=== PATIENT | male | born 1995 | race Caucasian/White ===

== ENCOUNTER 2022-10-21 18:21 | Observation (INO) ==
--- NOTE | 2022-10-21 18:26 | ED Triage Note ---
Date of Service October 21, 2022 History of Present Illness This patient was briefly evaluated while in triage. An abbreviated physical exam was performed. This patient is a 27-year-old Male who presents to the ED for evaluation of left kidney stone. Seen here 2 days ago. Reports increasing pain. Denies urinary symptoms, fevers. Has urology appt scheduled for Friday. Physical Exam Constitutional: alert and oriented x3. no acute distress. ill appearing HEENT: normocephalic, atraumatic. normal conjunctiva.PERRLA. EOM's grossly intact. Respiratory: lungs are clear to auscultation without wheezes, rhonchi, or rales bilaterally. equal chest rise. normal respiratory effort, no accessory muscle use. Cardiovascular: normal heart sounds without murmur. regular rate and rhythm. GI: abdomen is soft, lower abdominal tenderness. No palpable masses. No rebound tenderness or guarding. L CVA tenderness MSK: moves all 4 extremities spontaneously Psych:appropriate mood and affect. Initial orders for labs and / or imaging were placed and patient was placed in the waiting area until a bed is available. Please see further documentation for the full ED course.
[2022-10-21] MEDS ORDERED: KETOROLAC TROMETHAMINE 15 MG/ML VIAL IV STA (18:35)
[2022-10-21] MEDS ORDERED: SODIUM CHLORIDE 0.9% 1000ML 1,000 ML IV ONE (18:35)
[2022-10-21] MEDS ORDERED: ONDANSETRON INJ 2 MG/ML 2 ML VIAL IV STA (18:35)
[2022-10-21 18:59] LABS: iSTAT Creatinine 0.8 mg/dl (0.6-1.3); iSTAT Hemoglobin 14.6 g/dl (14.0-18.0); iSTAT Ionized Calcium 1.24 mmol/l (1.12-1.32); iSTAT Potassium 3.6 mmol/L (3.3-5.0)
--- NOTE | 2022-10-21 19:12 | Emergency Department Note ---
History of Present Illness General Chief Complaint: Kidney Stone Stated Complaint: ABD PAIN FROM KIDNEY STONE Time Seen by Provider: 10/21/22 18:30 History of Present Illness Provider Complaint: abdominal pain Onset (ago): 1 day(s) Pain Consistency: constant Location: diffuse Severity: moderate Maximum Pain Intensity: 5 Current Pain Intensity: 5 Quality: + stabbing and + sharp Relieved By: + nothing Exacerbated By: + nothing Context: no foreign travel, no possible food poisoning, no sick contacts, no recent antibiotic use, no recent surgery/procedure or no recent injury Associated Symptoms: + nausea and + vomiting; no diarrhea, no fever, no chills, no constipation, no dysuria, no hematemesis, no melena, no hematuria, no headach e, no neck pain, no chest pain and no breathing difficulty Home Medications Medication Instructions Recorded Confirmed Type oxycodone 5 mg tablet 5 mg PO Q6H PRN pain #10 tabs 10/19/22 10/21/22 Rx tamsulosin 0.4 mg capsule (Flomax) 0.4 mg PO DAILY #10 caps 10/19/22 10/21/22 Rx Allergies Allergy/AdvReac Type Severity Reaction Status Date / Time No Known Allergies Allergy Verified 10/21/22 19:42 Past Med/Surg History Medical History Crohn disease Surgical History No pertinent past surgical history Social History Smoking Status: Never smoker Preferred Language: Slovak Feels Safe at Home: Yes Physical Exam Vital Signs: Vital Signs - 24 hr 10/21/22 18:24 10/21/22 18:36 10/21/22 20:32 Temperature 36.8 C Temperature Source Temporal Artery Sc an Pulse Rate 165 H 106 H Pulse Rate [Left F minnie] 74 Pulse Rhythm [Left Finger] Regular Pulse Strength [Le ft Finger] Normal Respiratory Rate 18 16 Respiratory Effort / Characteristics Non-Labored Sponta neous Non-Labored Sponta neous Respiratory Depth Normal Normal Blood Pressure 124/65 Blood Pressure [Ri ght Arm] 116/60 Blood Pressure Shaista n 84 Blood Pressure Shaista n [Right Arm] 78 Pulse Oximetry 98 98 Oxygen Delivery Me thod Room Air Room Air Sepsis Recent Feve r Within 48 Hours No Sepsis New/Unexpla ined Change in Men jack Status No Sepsis Action Take n by Nursing No Action Required 10/21/22 22:40 Temperature Temperature Source Pulse Rate Pulse Rate [Left F minnie] 82 Pulse Rhythm [Left Finger] Regular Pulse Strength [Le ft Finger] Normal Respiratory Rate 16 Respiratory Effort / Characteristics Non-Labored Sponta neous Respiratory Depth Normal Blood Pressure Blood Pressure [Ri ght Arm] 133/67 Blood Pressure Shaista n Blood Pressure Shaista n [Right Arm] 89 Pulse Oximetry 98 Oxygen Delivery Me thod Room Air Sepsis Recent Feve r Within 48 Hours Sepsis New/Unexpla ined Change in Men jack Status Sepsis Action Take n by Nursing Physical Exam: Physical Exam GENERAL: She is oriented to person, place, and time. She appears well-developed and well-nourished. She does not appear distressed. HENT: Exam performed. -Head: Normocephalic and atraumatic. -Right Ear: External ear normal. No mastoid erythema -Left Ear: External ear normal. No mastoid erythema -Mouth/Throat: The oropharynx is clear and moist. No trismus in the jaw. No dental abscesses or uvula swelling. No oropharyngeal exudate or tonsillar abscesses. EYES: Conjunctivae and EOM are normal.Right eye exhibits no discharge. Left eye exhibits no discharge. No scleral icterus. NECK: Normal range of motion. Neck supple. No JVD present. No tracheal deviation and normal range of motion present. CV: Normal rate, regular rhythm, normal heart sounds and intact distal pulses. There is no peripheral edema. Palpable radial pulses bue. PULM/CHEST: Effort normal and breath sounds normal. No respiratory distress. No stridor. She has no wheezes. She has no rales. -Chest Wall: She exhibits no tenderness. ABD: The abdomen is soft. Bowel sounds are normal. She has no distension. No mass is present. There is diffuse tenderness to palpation. There is no rebound, no guarding, no Chawla's sign and no tenderness at McBurney's point. Rovsig negative MUSC/SKEL: Normal range of motion. There is no peripheral edema, tenderness or deformity. NEURO: Motor and sensation grossly intact. SKIN: Skin is warm and dry. She is not diaphoretic. PSYCH: She has a normal mood and affect. Behavior is normal. Judgment and thought content normal. Course Course 1829: The patient was evaluated in room C1. A complete history and physical exam was performed Administered Medications Discontinued Medications Sodium Chloride (Nss 1000ml) 1,000 mls @ 999 mls/hr IV .Q1H1M ONE Stop: 10/21/22 19:35 Last Infusion: 10/21/22 19:49 Dose: 0 mls/hr Documented By: Admin: 10/21/22 18:42 Dose: 999 mls/hr Documented By: JEANE Ioversol (Optiray 350 500ml) 93 ml IV ONCE ONE Stop: 10/21/22 19:37 Last Admin: 10/21/22 19:37 Dose: 93 ml Documented By: JANETH Ketorolac Tromethamine (Ketorolac Tromethamine 15 Mg/Ml Vial) 15 mg IV NOW STA Stop: 10/21/22 18:36 Last Admin: 10/21/22 18:41 Dose: 15 mg Documented By: JEANE Methylprednisolone (Methylprednisolone 125 Mg/2 Ml Vial) 125 mg IV NOW STA Stop: 10/21/22 22:22 Last Admin: 10/21/22 22:41 Dose: 125 mg Documented By: SOPHIA Ondansetron HCl (Ondansetron Inj 2 Mg/Ml 2 Ml Vial) 4 mg IV NOW STA Stop: 10/21/22 18:36 Last Admin: 10/21/22 18:41 Dose: 4 mg Documented By: JEANE Medical Decision Making Medical Records Attestation: I reviewed the patient's medical records. External medical records reviewed. Patient was seen in the emergency department 48 hours ago[address] Patient has CT of the abdomen done. At that time the patient had an appendix measuring 13 mm as well as mild left-sided hydronephrosis and hydroureter secondary to a 5 x 3 mm kidney stone in the left ureter. According to the providers note from the emergency department visit the patient no pain on palpation of the right lower quadrant. Patient was discharged home with oxycodone prescription Laboratory Data Attestation: I reviewed the patient's lab results. 10/21/22 18:39 10/21/22 18:39 Lab Results 10/21/22 10/21/22 10/21/22 Range/Units 18:39 18:39 18:39 WBC 11.06 H (4.8-10.8) K/ul RBC 4.87 (4.70-6.10) M/uL Hgb 14.3 (14.0-18.0) g/dl POC Hgb (14.0-18.0) g/dl Hct 41.4 L (42.0-52.0) % POC Hct (42-52) % MCV 85.0 (80.0-100.0) fL MCH 29.4 (25.0-34.0) pg MCHC 34.5 (32.0-36.0) g/dL RDW Std Deviation 37.8 (36.4-46.3) fL RDW Coeff of Kat 12.3 (11.5-14.5) % Plt Count 70 L (130-400) K/uL MPV 11.5 (9.4-12.4) fL Immature Gran % (Auto) 0.3 % Neut % (Auto) 86.2 % Lymph % (Auto) 7.1 % Marshall % (Auto) 6.0 % Eos % (Auto) 0.2 % Baso % (Auto) 0.2 % Neut # (Auto) 9.55 H (1.40-6.50) K/uL Lymph # (Auto) 0.78 L (1.2-3.4) K/uL Marshall # (Auto) 0.66 H (0.11-0.59) K/uL Eos # (Auto) 0.02 (0-0.50) K/uL Baso # (Auto) 0.02 (0-0.2) K/uL Immature Gran # (Auto) 0.03 (0.01-0.20) K/uL Platelet Estimate Decreased L (Normal) PT 10.5 (9.0-12.0) Seconds INR 1.0 (0.9-1.1) APTT 30.3 (21.0-31.0) Seconds PTT Ratio 1.1 POC Sodium (135-144) mmol/L Sodium 138 (136-145) mmol/L POC Potassium (3.3-5.0) mmol/L Potassium 3.5 (3.5-5.1) mmol/L POC Chloride (101-112) mmol/L Chloride 105 (98-107) mmol/L Carbon Dioxide 23 (21-32) mmol/L POC Total CO2 (24-31) mmol/L Anion Gap 10 (3-11) POC Anion Gap (16-25) mmol/L POC BUN (7-18) mg/dl BUN 9 (6-23) mg/dl Creatinine 0.84 (0.6-1.4) mg/dl POC Creatinine (0.6-1.3) mg/dl Est Cr Clr Drug Dosing 136.4 ml/min Est GFR ( Amer) 139.1 ml/min Est GFR (Non-Af Amer) 120.0 ml/min BUN/Creatinine Ratio 10.7 (10-20) Glucose 90 (70-99(Fasting)) mg/dl POC Glucose (other) (70-99) mg/dl Calcium 9.0 (8.6-10.3) mg/dl POC Ioniz Calcium Zainab (1.12-1.32) mmol/l Total Bilirubin 0.5 (0.2-1.0) mg/dl AST 13 (13-39) U/L ALT 14 (7-52) U/L Alkaline Phosphatase 66 (34-104) U/L Total Protein 7.3 (6.0-8.3) gm/dl Albumin 4.0 (3.4-5.0) gm/dl Globulin 3.3 (2.5-4.0) gm/dl Albumin/Globulin Ratio 1.2 (0.9-2) Lipase 16 (11-82) U/L Urine Color Urine Appearance (Clear) Urine pH (4.5-7.5) Ur Specific [place] (1.000-1.030) Urine Protein (Negative) Urine Glucose (UA) (Negative) Urine Ketones (Negative) Urine Blood (Negative) Urine Nitrite (Negative) Urine Bilirubin (Negative) Urine Urobilinogen (Negative) Ur Leukocyte Esterase (Negative) 10/21/22 10/21/22 Range/Units 18:46 21:15 WBC (4.8-10.8) K/ul RBC (4.70-6.10) M/uL Hgb (14.0-18.0) g/dl POC Hgb 14.6 (14.0-18.0) g/dl Hct (42.0-52.0) % POC Hct 43 (42-52) % MCV (80.0-100.0) fL MCH (25.0-34.0) pg MCHC (32.0-36.0) g/dL RDW Std Deviation (36.4-46.3) fL RDW Coeff of Kat (11.5-14.5) % Plt Count (130-400) K/uL MPV (9.4-12.4) fL Immature Gran % (Auto) % Neut % (Auto) % Lymph % (Auto) % Marshall % (Auto) % Eos % (Auto) % Baso % (Auto) % Neut # (Auto) (1.40-6.50) K/uL Lymph # (Auto) (1.2-3.4) K/uL Marshall # (Auto) (0.11-0.59) K/uL Eos # (Auto) (0-0.50) K/uL Baso # (Auto) (0-0.2) K/uL Immature Gran # (Auto) (0.01-0.20) K/uL Platelet Estimate (Normal) PT (9.0-12.0) Seconds INR (0.9-1.1) APTT (21.0-31.0) Seconds PTT Ratio POC Sodium 140 (135-144) mmol/L Sodium (136-145) mmol/L POC Potassium 3.6 (3.3-5.0) mmol/L Potassium (3.5-5.1) mmol/L POC Chloride 104 (101-112) mmol/L Chloride (98-107) mmol/L Carbon Dioxide (21-32) mmol/L POC Total CO2 22 L (24-31) mmol/L Anion Gap (3-11) POC Anion Gap 19.0 (16-25) mmol/L POC BUN 8 (7-18) mg/dl BUN (6-23) mg/dl Creatinine (0.6-1.4) mg/dl POC Creatinine 0.8 (0.6-1.3) mg/dl Est Cr Clr Drug Dosing ml/min Est GFR ( Amer) ml/min Est GFR (Non-Af Amer) ml/min BUN/Creatinine Ratio (10-20) Glucose (70-99(Fasting)) mg/dl POC Glucose (other) 94 (70-99) mg/dl Calcium (8.6-10.3) mg/dl POC Ioniz Calcium Zainab 1.24 (1.12-1.32) mmol/l Total Bilirubin (0.2-1.0) mg/dl AST (13-39) U/L ALT (7-52) U/L Alkaline Phosphatase (34-104) U/L Total Protein (6.0-8.3) gm/dl Albumin (3.4-5.0) gm/dl Globulin (2.5-4.0) gm/dl Albumin/Globulin Ratio (0.9-2) Lipase (11-82) U/L Urine Color Yellow Urine Appearance Clear (Clear) Urine pH 5.5 (4.5-7.5) Ur Specific [place] > 1.045 H (1.000-1.030) Urine Protein Negative (Negative) Urine Glucose (UA) Negative (Negative) Urine Ketones 3+ H (Negative) Urine Blood Negative (Negative) Urine Nitrite Negative (Negative) Urine Bilirubin Negative (Negative) Urine Urobilinogen Negative (Negative) Ur Leukocyte Esterase Negative (Negative) Imaging Data Radiologist's Impression: Abdomen/Pelvis CT 10/21/22 18:35 Exam(s): CT ABDOMEN + PELVIS With Contrast IV Amt: 93 ml optiray 350 EXAM: CT Abdomen and Pelvis With Intravenous Contrast CLINICAL HISTORY: Reason for exam: abd pain. TECHNIQUE: Axial computed tomography images of the abdomen and pelvis with intravenous contrast. CTDI is 23.55 mGy and DLP is 1274.27 mGy-cm. Automated exposure control was utilized for the study. A dose lowering technique was utilized adhering to the principles of ALARA. CONTRAST: Patient received 93 ml optiray 350 of IV contrast COMPARISON: CT abdomen/pelvis on 10/19/2022 FINDINGS: Lung bases: Mild dependent atelectasis bilaterally. ABDOMEN: Liver: Mild hepatomegaly. No mass. Gallbladder and bile ducts: Unremarkable. No calcified stones. No ductal dilation. Pancreas: Unremarkable. No mass. No ductal dilation. Spleen: Mild splenomegaly. Adrenals: Unremarkable. No mass. Kidneys and ureters: Patchy hypoattenuation in the right kidney raises concern for pyelonephritis. Punctate nonobstructing right renal stone. No hydronephrosis or ureteral stone. Stomach and bowel: Wall thickening of the terminal and distal ileum, concerning for enteritis. The terminal ileum is decompressed, and the extreme small bowel ileal loops are mildly distended. Findings raise concern for component of obstruction. Evaluation of the stomach is limited by underdistention. PELVIS: Appendix: Mild prominence of the appendix is similar compared to prior exam which may represent chronic changes versus acute appendicitis. Appendix measures approximately 9 mm in diameter. Bladder: Unremarkable. No mass. Reproductive: Unremarkable as visualized. ABDOMEN and PELVIS: Intraperitoneal space: Small amount of fluid in the lower abdomen and pelvis. No free air. Bones/joints: No acute fracture. No dislocation. Soft tissues: Bilateral gynecomastia. Vasculature: Unremarkable. No abdominal aortic aneurysm. Lymph nodes: Prominent mesenteric lymph nodes are nonspecific but may be reactive. IMPRESSION: 1. Mild prominence of the appendix is similar compared to prior exam which may represent chronic changes versus acute appendicitis. Appendix measures approximately 9 mm in diameter. 2. Wall thickening of the terminal and distal ileum, concerning for enteritis. The terminal ileum is decompressed, and the extreme small bowel ileal loops are mildly distended. Findings raise concern for component of obstruction. 3. Patchy hypoattenuation in the right kidney raises concern for pyelonephritis. 4. Punctate nonobstructing right renal stone. No hydronephrosis or ureteral stone. 5. Small amount of fluid in the lower abdomen and pelvis. Electronically signed by: Faraz Black M.D. 10/21/22 20:45 PM ECG Data Attestation: I personally reviewed and interpreted this ECG as follows: Indication: abdominal pain Rate (beats per minute): 126 Rhythm: sinus tachycardia Findings: no ST depression, no ST elevation or no prolonged QT MDM Narrative Cardiac monitoring: An order was placed for continuous cardiac monitoring. The monitor shows a rate of 110 with sinus tachycardia rhythm interpreted by me Vital signs stable. Labs show white blood cell count of 11.06. Platelet count of 70. Labs are otherwise within normal limits. Urinalysis shows 3+ ketones. Imaging read by radiology shows mild prominence of the appendix similar compared to prior exam representing chronic changes versus acute appendicitis, appendix is 9 mm in diameter. There is wall thickening of the terminal and distal ileum concerning for enteritis. The terminal ileum was decompressed and the extreme small bowel ileal loops are mildly distended concerning for component obstruction. There is patchy hypoattenuation in the right kidney concerning for pyelonephritis. No hydronephrosis or ureteral stone. Urinalysis is negative, no concern for UTI or pyelonephritis. Discussed the case with Dr. Moe on- call general surgery. Dr. Moe reviewed his CT himself and he said that the patient has chronic inflammatory changes within the terminal ileum consistent with a Crohn's flare. He states that there is no concern from his for appendicitis and the patient does not need surgery tonight. I spoke with the patient about the CT findings and discussion with Dr. Moe. The patient states he had recently lost insurance but recently got it back and has not followed up with GI and quite some time. He states he has an upcoming appointment with [facility] on . Patient will be given Solu- Medrol 125 mg IV for possible Crohn's flareup. Given the patient's concerning for component of obstruction in the small bowel, patient will be admitted to the [facility] hospitalist team. Dr. Quesada notified. Impression & Plan Crohn's disease, SBO (small bowel obstruction) Discharge Plan Visit Data Chief Complaint: Kidney Stone Stated Complaint: ABD PAIN FROM KIDNEY STONE ED Provider: Ronny Novoa Discharge Problem: Crohn's disease, SBO (small bowel obstruction) Patient Disposition: Being Evaluated by Hospitalist Forms Stand Alone Forms: My [facility], Virtual Emergency Department, Impo rtant Visit Information Prescriptions Prescriptions: No Action tamsulosin [Flomax] 0.4 mg capsule 0.4 mg PO DAILY Qty: 10 0RF oxycodone 5 mg tablet 5 mg PO Q6H PRN (Reason: pain) Qty: 10 0RF Rx Instructions: Initial Treatment Referrals Referrals: PCP,NO [Primary Care Provider] -
[2022-10-21 19:25] LABS: Partial Thromboplastin Ratio 1.1; Partial Thromboplastin Time 30.3 Seconds (21.0-31.0); Prothrombin Time 10.5 Seconds (9.0-12.0)
[2022-10-21] MEDS ORDERED: OPTIRAY 350 500ml IV ONE (19:36)
[2022-10-21 19:42] LABS: Basophils # (auto) 0.02 K/uL (0-0.2); Basophils % (auto) 0.2 %; Eosinophils # (auto) 0.02 K/uL (0-0.50); Eosinophils % (auto) 0.2 %; Immature Granulocytes # (auto) 0.03 K/uL (0.01-0.20); Immature Granulocytes % (auto) 0.3 %; Lymphocytes # (auto) 0.78 K/uL (1.2-3.4); Lymphocytes % (auto) 7.1 %; Monocytes # (auto) 0.66 K/uL (0.11-0.59); Neutrophils # (auto) 9.55 K/uL (1.40-6.50); Neutrophils % (auto) 86.2 %; Platelet Estimate Decreased (Normal)
[2022-10-21 19:43] LABS: Albumin Globulin Ratio 1.2 (0.9-2); BUN Creatinine Ratio 10.7 (10-20); Bilirubin,Total 0.5 mg/dl (0.2-1.0); Creatinine Clr Calc Pharmacy 136.4 ml/min; Est GFR (African American) 139.1 ml/min; Globulin 3.3 gm/dl (2.5-4.0); Hematocrit (blood only) 41.4 % (42.0-52.0); Hemoglobin 14.3 g/dl (14.0-18.0); Mean Corpuscular Hemoglobin 29.4 pg (25.0-34.0); Mean Corpuscular Hgb Conc 34.5 g/dL (32.0-36.0); Mean Platelet Volume 11.5 fL (9.4-12.4); Platelet Count 70 K/uL (130-400); Potassium 3.5 mmol/L (3.5-5.1); RDW Coefficient of Variation 12.3 % (11.5-14.5); RDW Standard Deviation 37.8 fL (36.4-46.3); Red Blood Count 4.87 M/uL (4.70-6.10); Total Protein 7.3 gm/dl (6.0-8.3); White Blood Count 11.06 K/ul (4.8-10.8)
--- NOTE | 2022-10-21 20:47 | CT Scan Report ---
Exam(s): CT ABDOMEN + PELVIS With Contrast IV Amt: 93 ml optiray 350 EXAM: CT Abdomen and Pelvis With Intravenous Contrast CLINICAL HISTORY: Reason for exam: abd pain. TECHNIQUE: Axial computed tomography images of the abdomen and pelvis with intravenous contrast. CTDI is 23.55 mGy and DLP is 1274.27 mGy-cm. Automated exposure control was utilized for the study. A dose lowering technique was utilized adhering to the principles of ALARA. CONTRAST: Patient received 93 ml optiray 350 of IV contrast COMPARISON: CT abdomen/pelvis on 10/19/2022 FINDINGS: Lung bases: Mild dependent atelectasis bilaterally. ABDOMEN: Liver: Mild hepatomegaly. No mass. Gallbladder and bile ducts: Unremarkable. No calcified stones. No ductal dilation. Pancreas: Unremarkable. No mass. No ductal dilation. Spleen: Mild splenomegaly. Adrenals: Unremarkable. No mass. Kidneys and ureters: Patchy hypoattenuation in the right kidney raises concern for pyelonephritis. Punctate nonobstructing right renal stone. No hydronephrosis or ureteral stone. Stomach and bowel: Wall thickening of the terminal and distal ileum, concerning for enteritis. The terminal ileum is decompressed, and the extreme small bowel ileal loops are mildly distended. Findings raise concern for component of obstruction. Evaluation of the stomach is limited by underdistention. PELVIS: Appendix: Mild prominence of the appendix is similar compared to prior exam which may represent chronic changes versus acute appendicitis. Appendix measures approximately 9 mm in diameter. Bladder: Unremarkable. No mass. Reproductive: Unremarkable as visualized. ABDOMEN and PELVIS: Intraperitoneal space: Small amount of fluid in the lower abdomen and pelvis. No free air. Bones/joints: No acute fracture. No dislocation. Soft tissues: Bilateral gynecomastia. Vasculature: Unremarkable. No abdominal aortic aneurysm. Lymph nodes: Prominent mesenteric lymph nodes are nonspecific but may be reactive. IMPRESSION: 1. Mild prominence of the appendix is similar compared to prior exam which may represent chronic changes versus acute appendicitis. Appendix measures approximately 9 mm in diameter. 2. Wall thickening of the terminal and distal ileum, concerning for enteritis. The terminal ileum is decompressed, and the extreme small bowel ileal loops are mildly distended. Findings raise concern for component of obstruction. 3. Patchy hypoattenuation in the right kidney raises concern for pyelonephritis. 4. Punctate nonobstructing right renal stone. No hydronephrosis or ureteral stone. 5. Small amount of fluid in the lower abdomen and pelvis. Electronically signed by: Faraz Black M.D. 10/21/22 20:45 PM
[2022-10-21 21:36] LABS: Appearance Urine Clear (Clear); Bilirubin Urine Negative (Negative); Blood Urine Negative (Negative); Color Urine Yellow; Glucose Urine UA Negative (Negative); Ketones Urine 3+ (Negative); Leukocyte Esterase Urine Negative (Negative); Nitrite Urine Negative (Negative); Protein Urine Negative (Negative); Specific Gravity Urine > 1.045 (1.000-1.030); Urobilinogen Urine Negative (Negative); pH Urine 5.5 (4.5-7.5)
[2022-10-21] MEDS ORDERED: methylPREDNISolone 125 MG/2 ML VIAL IV STA (22:21)
--- NOTE | 2022-10-21 22:52 | History & Physical Report ---
Date of Service October 21, 2022 Assessment & Plan (1) Abdominal pain: Plan: 27 yo male with PMHx of Crohn's disease and kidney stones presents with abdominal pain. #Abdominal pain -initially with LLQ 3 days ago attributed to kidney stone. Pain was resolving until earlier today had sharp epigastric/lower quadrant pains with nausea and vomiting. Vitals wnl, afebrile. Mild leukocytosis but UA does not appear infectious. Lipase neg. LFTs neg. Broad ddx and perhaps multifactorial including kidney stone, enteritis, SBO, appendicitis, crohns flare. -CT A/P (10/19/22): appendix is more prominent measuring 13 mm. Mild left hydronephrosis and proximal hydroureter due to a 5 x 3 mm calculus in the proximal left ureter. Nonobstructive 2mm calyceal calculus in the mid right kidney. Slight edema involving the wall of the terminal ileum in the right lower quadrant. -CT A/P (10/22/22): mild prominence of the appendix measuring 9 mm. Wall thickening of the terminal and distal ileum, concerning for enteritis. The terminal ileum is decompressed, and the extreme small bowel ileal loops are mildly distended raise suspicion for obstruction. Patchy hypoattenuation in the right kidney raises concern for pyelonephritis. -L ureter stone no longer apparent on repeat CT. CT with concerns for R pyelo however UA negative and without CVA tenderness. Consider urology consult. He does have an outpatient appt scheduled with them later this week. -ED provider did consult with gen surg who had a low concern for appendicitis and did not see a surgical indication at this point. However, still with possible developing SBO. They will cont. to follow. -GI consulted for possible Crohn's flare. Pt did receive methylprednisone 125mg in ED. Defer further steroids to day team. -NPO, NSS @ 100, pain control, zofran -pt did have some chills earlier in the day and with decreasing platelets will treat with abx empirically. Started zosyn. #Thrombocytopenia -platelets 70 on admission. Appears acute. Worsening from ER visit 2 days ago. Unclear etiology. ?infectious process. #H/o Crohn's disease -diagnosed 5 years ago not in [place]. Previously on mesalamine but was d/c'd a few years ago due to insurance reasons. Has been able to control symptoms with avoidance of triggers. -he was scheduled to establish with [facility] later this week DVT ppx: SCDs FEN/GI: NPO, NSS @ 100 Code Status: Full Dispo: med surg, obs (2) Crohn's disease: (3) Ureterolithiasis: History of Present Illness Chief Complaint: abdominal pain Primary Care Provider: MAYDA PCP 27 yo male with PMHx of Crohn's disease and kidney stones presents with abdominal pain. 3 days ago patient began having LLQ pain. He presumed it was a kidney stone given his history so he tried to hydrate but ended up vomiting prompting an ER visit. He was found to have a 5mm stone in his L proximal ureter with mild hydronephrosis and was discharged on flomax and oxy. His pain was minimal after until earlier today he started having sharp epigastric pain radiating down to his lower quadrants. Associated nausea and bilious vomiting. He did for a moment feel director operating room his head with body chills. Denies headache, fatigue, sob, chest pain, diarrhea/constipation, melena, hematuria, dysuria. Of note he was diagnosed with Crohn's 5 years ago and was previously on mesalamine. He stopped taking mesalamine a few years ago due to insurance and since has been able to control symptoms with avoidance of triggers. Has previously always been able to pass his kidney stones with supportive care. Allergies Allergy/AdvReac Type Severity Reaction Status Date / Time No Known Allergies Allergy Verified 10/21/22 19:42 Home Medications Medication Instructions Recorded Confirmed Type oxycodone 5 mg tablet 5 mg PO Q6H PRN pain #10 tabs 10/19/22 10/21/22 Rx tamsulosin 0.4 mg capsule (Flomax) 0.4 mg PO DAILY #10 caps 10/19/22 10/21/22 Rx Past Med/Surg History Medical History Crohn disease Surgical History No pertinent past surgical history Social History Smoking Status: Never smoker Second Hand Exposure: No; Do You Dip or Chew Tobacco: No; Tobacco Cessation Education Requested by Patient: No Hx Alcohol Use: Yes Alcohol type: beer Hx Substance Use: No Preferred Language: Polish Communication Ability: Effective Industrial Health Engineer Required: No Beliefs That Will Affect Care: None Current Living Situation: Other Current Living Situation Comment: Roomates on the weekend Other Information That Helps Us Care for You: No Feels Safe at Home: Yes Safety Concerns: Feels Safe At This Time Assistive Devices: None Review of Systems Review of Systems: All systems reviewed & are unremarkable except as noted in HPI & below Physical Exam Physical Exam: Constitutional: in no acute distress, pleasant and normal affect, intact memory. AOx3. Vitals as above. HEENT: No scleral injection or discharge.Moist mucous membranes. Neck: Supple without lymphadenopathy or thyromegaly. Trachea midline. Lungs: Clear to auscultation bilaterally with good effort. No wheezes/rales/rhonchi. Cardiac: Regular rate and rhythm. No murmurs. No extremity edema. 2+ distal peripheral pulses. Abdomen: Bowel sounds present. Soft and nondistended.Tender over epigastric and RLQ. Neg psoas sign. Neg McBurney. Neg Rovsing. No guarding or rebound tenderness. No hepatosplenomegaly. No CVA tenderness however with some low-mid L back discomfort upon palpation. MSK: No cyanosis or clubbing. Extremities motor strength 5/5. Skin: No abnormal rashes, warm, dry. Neurologic: no focal deficits Results & Data Results & Data Vital Signs (Past 12 Hours) Vital Signs Temp Pulse Pulse Resp BP BP Pulse Ox 10/21/22 22:40 82 16 133/67 98 10/21/22 20:32 74 16 116/60 98 10/21/22 18:36 106 H 10/21/22 18:24 36.8 C 165 H 18 124/65 98 O2 Del Method 10/21/22 22:40 Room Air 10/21/22 20:32 Room Air 10/21/22 18:36 10/21/22 18:24 Room Air Laboratory Results Laboratory Results WBC 11.06 K/ul (4.8-10.8) H 10/21/22 18:39 RBC 4.87 M/uL (4.70-6.10) 10/21/22 18:39 Hgb 14.3 g/dl (14.0-18.0) 10/21/22 18:39 POC Hgb 14.6 g/dl (14.0-18.0) 10/21/22 18:46 Hct 41.4 % (42.0-52.0) L 10/21/22 18:39 POC Hct 43 % (42-52) 10/21/22 18:46 MCV 85.0 fL (80.0-100.0) 10/21/22 18:39 MCH 29.4 pg (25.0-34.0) 10/21/22 18:39 MCHC 34.5 g/dL (32.0-36.0) 10/21/22 18:39 RDW Std Deviation 37.8 fL (36.4-46.3) 10/21/22 18:39 RDW Coeff of Kat 12.3 % (11.5-14.5) 10/21/22 18:39 Plt Count 70 K/uL (130-400) L 10/21/22 18:39 MPV 11.5 fL (9.4-12.4) 10/21/22 18:39 Immature Gran % (Auto) 0.3 % 10/21/22 18:39 Neut % (Auto) 86.2 % 10/21/22 18:39 Lymph % (Auto) 7.1 % 10/21/22 18:39 Moffat % (Auto) 6.0 % 10/21/22 18:39 Eos % (Auto) 0.2 % 10/21/22 18:39 Baso % (Auto) 0.2 % 10/21/22 18:39 Neut # (Auto) 9.55 K/uL (1.40-6.50) H 10/21/22 18:39 Lymph # (Auto) 0.78 K/uL (1.2-3.4) L 10/21/22 18:39 Moffat # (Auto) 0.66 K/uL (0.11-0.59) H 10/21/22 18:39 Eos # (Auto) 0.02 K/uL (0-0.50) 10/21/22 18:39 Baso # (Auto) 0.02 K/uL (0-0.2) 10/21/22 18:39 Immature Gran # (Auto) 0.03 K/uL (0.01-0.20) 10/21/22 18:39 Platelet Estimate Decreased (Normal) L 10/21/22 18:39 PT 10.5 Seconds (9.0-12.0) 10/21/22 18:39 INR 1.0 (0.9-1.1) 10/21/22 18:39 APTT 30.3 Seconds (21.0-31.0) 10/21/22 18:39 PTT Ratio 1.1 10/21/22 18:39 POC Sodium 140 mmol/L (135-144) 10/21/22 18:46 Sodium 138 mmol/L (136-145) 10/21/22 18:39 POC Potassium 3.6 mmol/L (3.3-5.0) 10/21/22 18:46 Potassium 3.5 mmol/L (3.5-5.1) 10/21/22 18:39 POC Chloride 104 mmol/L (101-112) 10/21/22 18:46 Chloride 105 mmol/L (98-107) 10/21/22 18:39 Carbon Dioxide 23 mmol/L (21-32) 10/21/22 18:39 POC Total CO2 22 mmol/L (24-31) L 10/21/22 18:46 Anion Gap 10 (3-11) 10/21/22 18:39 POC Anion Gap 19.0 mmol/L (16-25) 10/21/22 18:46 POC BUN 8 mg/dl (7-18) 10/21/22 18:46 BUN 9 mg/dl (6-23) 10/21/22 18:39 Creatinine 0.84 mg/dl (0.6-1.4) 10/21/22 18:39 POC Creatinine 0.8 mg/dl (0.6-1.3) 10/21/22 18:46 Est Cr Clr Drug Dosing 136.4 ml/min 10/21/22 18:39 Est GFR ( Amer) 139.1 ml/min 10/21/22 18:39 Est GFR (Non-Af Amer) 120.0 ml/min 10/21/22 18:39 BUN/Creatinine Ratio 10.7 (10-20) 10/21/22 18:39 Glucose 90 mg/dl (70-99(Fasting)) 10/21/22 18:39 POC Glucose (other) 94 mg/dl (70-99) 10/21/22 18:46 Calcium 9.0 mg/dl (8.6-10.3) 10/21/22 18:39 POC Ioniz Calcium Zainab 1.24 mmol/l (1.12-1.32) 10/21/22 18:46 Total Bilirubin 0.5 mg/dl (0.2-1.0) 10/21/22 18:39 AST 13 U/L (13-39) 10/21/22 18:39 ALT 14 U/L (7-52) 10/21/22 18:39 Alkaline Phosphatase 66 U/L (34-104) 10/21/22 18:39 Total Protein 7.3 gm/dl (6.0-8.3) 10/21/22 18:39 Albumin 4.0 gm/dl (3.4-5.0) 10/21/22 18:39 Globulin 3.3 gm/dl (2.5-4.0) 10/21/22 18:39 Albumin/Globulin Ratio 1.2 (0.9-2) 10/21/22 18:39 Lipase 16 U/L (11-82) 10/21/22 18:39 Urine Color Yellow 10/21/22 21:15 Urine Appearance Clear (Clear) 10/21/22 21:15 Urine pH 5.5 (4.5-7.5) 10/21/22 21:15 Ur Specific [place] > 1.045 (1.000-1.030) H 10/21/22 21:15 Urine Protein Negative (Negative) 10/21/22 21:15 Urine Glucose (UA) Negative (Negative) 10/21/22 21:15 Urine Ketones 3+ (Negative) H 10/21/22 21:15 Urine Blood Negative (Negative) 10/21/22 21:15 Urine Nitrite Negative (Negative) 10/21/22 21:15 Urine Bilirubin Negative (Negative) 10/21/22 21:15 Urine Urobilinogen Negative (Negative) 10/21/22 21:15 Ur Leukocyte Esterase Negative (Negative) 10/21/22 21:15 Impressions Abdomen/Pelvis CT 10/21/22 18:35 Exam(s): CT ABDOMEN + PELVIS With Contrast IV Amt: 93 ml optiray 350 EXAM: CT Abdomen and Pelvis With Intravenous Contrast CLINICAL HISTORY: Reason for exam: abd pain. TECHNIQUE: Axial computed tomography images of the abdomen and pelvis with intravenous contrast. CTDI is 23.55 mGy and DLP is 1274.27 mGy-cm. Automated exposure control was utilized for the study. A dose lowering technique was utilized adhering to the principles of ALARA. CONTRAST: Patient received 93 ml optiray 350 of IV contrast COMPARISON: CT abdomen/pelvis on 10/19/2022 FINDINGS: Lung bases: Mild dependent atelectasis bilaterally. ABDOMEN: Liver: Mild hepatomegaly. No mass. Gallbladder and bile ducts: Unremarkable. No calcified stones. No ductal dilation. Pancreas: Unremarkable. No mass. No ductal dilation. Spleen: Mild splenomegaly. Adrenals: Unremarkable. No mass. Kidneys and ureters: Patchy hypoattenuation in the right kidney raises concern for pyelonephritis. Punctate nonobstructing right renal stone. No hydronephrosis or ureteral stone. Stomach and bowel: Wall thickening of the terminal and distal ileum, concerning for enteritis. The terminal ileum is decompressed, and the extreme small bowel ileal loops are mildly distended. Findings raise concern for component of obstruction. Evaluation of the stomach is limited by underdistention. PELVIS: Appendix: Mild prominence of the appendix is similar compared to prior exam which may represent chronic changes versus acute appendicitis. Appendix measures approximately 9 mm in diameter. Bladder: Unremarkable. No mass. Reproductive: Unremarkable as visualized. ABDOMEN and PELVIS: Intraperitoneal space: Small amount of fluid in the lower abdomen and pelvis. No free air. Bones/joints: No acute fracture. No dislocation. Soft tissues: Bilateral gynecomastia. Vasculature: Unremarkable. No abdominal aortic aneurysm. Lymph nodes: Prominent mesenteric lymph nodes are nonspecific but may be reactive. IMPRESSION: 1. Mild prominence of the appendix is similar compared to prior exam which may represent chronic changes versus acute appendicitis. Appendix measures approximately 9 mm in diameter. 2. Wall thickening of the terminal and distal ileum, concerning for enteritis. The terminal ileum is decompressed, and the extreme small bowel ileal loops are mildly distended. Findings raise concern for component of obstruction. 3. Patchy hypoattenuation in the right kidney raises concern for pyelonephritis. 4. Punctate nonobstructing right renal stone. No hydronephrosis or ureteral stone. 5. Small amount of fluid in the lower abdomen and pelvis. Electronically signed by: Faraz Black M.D. 10/21/22 20:45 PM Supervising Physician Co-Signing Physician Notes Patient seen and examined, chart reviewed, case discussed with Dr. Valera and I agree with the assessment and plan as documented above. In brief, patient is a 27yo male with diet-controlled Crohns disease presenting with abdominal pain. Patient with recent kidney stone which he was managing at home. Now with sharp epigastric pain and pain in bilateral flanks. In the ER he is afebrile, HD stable, NAD. Pain in epigastric region, upper abdomen and bilateral flanks HEENT - MMM, neck supple Heart - +S1/S2, regular, no m/r/g Lungs - CTA Abd - +BS, soft, tender with voluntary guarding Ext - no edema Labs and images reviewed Assessment/Plan: Unclear etiology of pain - no obstructing stone, no pancreatitis, possible Crohns flare with developing obstruction - patient is passing flatus per usual. He has some blood on his stool. Received steroids in the ER -GI consultation appreciated -Pain control -Nausea control -Empiric Zosyn for now - repeat labs in AM -Remainder of plan as above Resident Activity Tracking Resident Involvement: Resident Care Provided Care Provided: Adult Hospital Medicine
[2022-10-22] MEDS ORDERED: PIPERACILLIN/TAZOBACTAM 4.5 GM/120 ML BAG IV STA (00:25)
[2022-10-22] MEDS ORDERED: ONDANSETRON INJ 2 MG/ML 2 ML VIAL IV PRN (00:55)
[2022-10-22] MEDS ORDERED: ACETAMINOPHEN 1,000 MG/100 ML VIAL IV PRN (00:55)
[2022-10-22] MEDS ORDERED: KETOROLAC TROMETHAMINE 15 MG/ML VIAL IV PRN (00:55)
[2022-10-22] MEDS ORDERED: HYDROmorphone INJ 0.5 MG/0.5 ML SYR IV PRN (00:55)
--- NOTE | 2022-10-22 01:27 | Billing Data ---
Date of Service October 21, 2022 Coding Level of Care Code 89463 INT INP/OBS CARE
[2022-10-22] MEDS: SODIUM CHLORIDE 0.9% 1000ML 1,000 ML IV SCH ×3 (01:57→20:58)
[2022-10-22] MEDS ORDERED: PIPERACILLIN/TAZOBACTAM 4.5 GM (over 30 mins) IV ONE (02:45)
[2022-10-22 07:26] LABS: Hematocrit (blood only) 40.2 % (42.0-52.0); Hemoglobin 13.7 g/dl (14.0-18.0); Mean Corpuscular Hemoglobin 29.3 pg (25.0-34.0); Mean Corpuscular Hgb Conc 34.1 g/dL (32.0-36.0); Mean Corpuscular Volume 86.1 fL (80.0-100.0); Mean Platelet Volume 11.6 fL (9.4-12.4); Platelet Count 165 K/uL (130-400); RDW Coefficient of Variation 12.3 % (11.5-14.5); RDW Standard Deviation 38.2 fL (36.4-46.3); Red Blood Count 4.67 M/uL (4.70-6.10); White Blood Count 8.27 K/ul (4.8-10.8)
[2022-10-22 07:51] LABS: Basophils # (auto) 0.01 K/uL (0-0.2); Basophils % (auto) 0.1 %; Eosinophils # (auto) 0.01 K/uL (0-0.50); Eosinophils % (auto) 0.1 %; Immature Granulocytes # (auto) 0.02 K/uL (0.01-0.20); Immature Granulocytes % (auto) 0.2 %; Lymphocytes # (auto) 0.61 K/uL (1.2-3.4); Lymphocytes % (auto) 7.4 %; Monocytes # (auto) 0.08 K/uL (0.11-0.59); Neutrophils # (auto) 7.54 K/uL (1.40-6.50); Neutrophils % (auto) 91.2 %
[2022-10-22 08:06] LABS: BUN Creatinine Ratio 13.9 (10-20); Creatinine Clr Calc Pharmacy 156.9 ml/min; Est GFR (African American) 142.6 ml/min; Est GFR (Non-African American) 123.1 ml/min; Magnesium 1.9 mg/dl (1.7-2.4); Potassium 4.2 mmol/L (3.5-5.1)
[2022-10-22] MEDS: PIPERACILLIN/TAZOBACTAM 4.5 GM in DEXTROSE 5% 100 ML IV SCH ×2 (08:18→16:16)
[2022-10-22] MEDS: TAMSULOSIN HCL 0.4 MG CAP PO SCH (09:42)
--- NOTE | 2022-10-22 09:43 | Hospitalist Progress Note ---
Date of Service October 22, 2022 Assessment & Plan (1) Abdominal pain: Plan: 27 yo male with PMHx of Crohn's disease and kidney stones presents with abdominal pain. #Abdominal pain #Thrombocytopenia -platelets 70 on admission. Appears acute. Worsening from ER visit 2 days ago. Unclear etiology. ?infectious process. #H/o Crohn's disease -diagnosed 5 years ago not in [place]. Previously on mesalamine but was d/c'd a few years ago due to insurance reasons. Has been able to control symptoms with avoidance of triggers. -he was scheduled to establish with [facility] later this week DVT ppx: SCDs FEN/GI: NPO, NSS @ 100 Code Status: Full Dispo: med surg, obs (2) Crohn's disease: Plan: -Initially with LLQ 3 days ago attributed to kidney stone, that pain has since resolved. -CTAP with mild prominence of the appendix measuring 9 mm, low suspicion of appendicitis per Surgery. Findings of enteritis and possible developing SBO on CTAP. -L ureter stone no longer apparent on repeat CT. CT with imaging findings possibly suggestive of R pyelo however UA negative and without CVA tenderness, fevers, chills. Consider Urology consult if symptoms worsen or develops fevers. He does have an outpatient appt scheduled with them later this week. -ED provider did consult with gen surg who had a low concern for appendicitis and did not see a surgical indication at this point, they continue to follow for possible developing SBO. -GI consulted for possible Crohn's flare. CRP elevated to 8.58, will check again tomorrow. -Continue methylpred 40mg IV BID for now. -Patient was initially on empiric Zosyn, however more suspicious of Crohn's flare, will continue to monitor off Abx for now. -NPO for now and advance as tolerated, continue NSS at 100cc/hr, pain control, zofran (3) Ureterolithiasis: Plan: Recent Hx of, no evidence of obstructing stone on CT this admission and stone pain has resolved. Continue IVF, Urology outpatient. Plan Continued IV steroids, NPO and escalate diet as specialty services allow and as patient tolerates. Do not anticipate elevated care needs on discharge, anticipate PO steroids on discharge with GI and Urology follow ups. Admission and Anticipated Discharge Date Admission Date: October 21, 2022 Subjective Improvement in abdominal pain today, pain is different than stone pain (left flank with nephrolithiasis in the past). No nausea, feeling a bit hungry. Passing gas but no stools today. Review of Systems Review of Systems: All systems reviewed & are unremarkable except as noted in Subjective Physical Exam Constitutional: WD/WN, vitals as above Respiratory: normal respiratory effort, lungs clear to auscultation Cardiovascular: RRR, no murmur, no edema Gastrointestinal (Abdomen): mildly tender in lower quadrants but soft and no rebound or guarding Skin: no rashes, warm and dry Psychiatric: A+Ox3, euthymic affect Results & Data Results & Data Vital Signs (Past 12 Hours) Vital Signs Temp Pulse Pulse Resp BP BP Pulse Ox 10/22/22 07:59 36.5 C 57 L 17 126/71 97 10/22/22 01:00 10/22/22 00:57 37 C 78 18 115/70 98 10/22/22 00:07 66 20 133/71 96 10/21/22 23:47 76 10/21/22 22:40 82 16 133/67 98 O2 Del Method 10/22/22 07:59 Room Air 10/22/22 01:00 Room Air 10/22/22 00:57 Room Air 10/22/22 00:07 Room Air 10/21/22 23:47 10/21/22 22:40 Room Air PG Care Time/CCT Total # of Minutes Spent Total Time Spent with Patient: Total time spent is greater than 50% in coordination of care (as documented) at patient's floor/unit and/or counseling patient: Coding Level of Care Code 63393 SUB INP/OBS CARE 2/35MIN Diagnoses Abdominal pain R10.9 Crohn's disease K50.90 Ureterolithiasis N20.1
--- NOTE | 2022-10-22 10:49 | Gastrointestinal Consultation ---
Date of Consultation October 22, 2022 Assessment & Plan (1) Crohn's disease: (2) SBO (small bowel obstruction): Plan -Will need to obtain records of his previous GI work-up. -Will check CRP & stool calprotectin. -Await surgical evaluation. -Can add IV Solumedrol 30 mg BID. -Will need outpatient GI work-up and colonoscopy when acute picture resolves. Supervising Physician Co-Signing Physician Notes I saw the patient and agree with the findings as documented by Ashley Jansen, JUNIOR can use solumedrol 30 mg BID IV while inpatient. History of Present Illness Reason for Consultation: Crohn's Flare Attending Physician: Jessica Gonzalez, History of Present Illness Patient is a 27 yo male with PMH of Crohn's Disease. I do not have records regarding the logistics of this diagnosis as they were apparently done at an outside facility. He notes that he was diagnosed with Crohn's Disease of the small intestine some time between [id number] at [facility] in [place]. He notes he was on Mesalamine 4.8 gm daily for some time and Dicyclomine. No history of biologic use. No history of surgical resection. He notes this is his second hospitalization (his first hospitalization led to his diagnosis). Patient developed abdominal pain several days ago. Due to his history of kidney stones, he assumed this was what was causing his issues and hydrated. He notes he had vomiting at that time which led to an ER visit. He was found to have a 5 mm L proximal ureter stone with hydronephrosis. He was sent home from the ED with pain meds and Flomax. He notes that the pain improved, but yesterday started having epigastric pain with radiation to his RLQ. He developed bilious vomiting. 27 yo male with PMHx of Crohn's disease and kidney stones presents with abdominal pain. 3 days ago patient began having LLQ pain. He presumed it was a kidney stone given his history so he tried to hydrate but ended up vomiting prompting an ER visit. He was found to have a 5mm stone in his L proximal ureter with mild hydronephrosis and was discharged on flomax and oxy. His pain was minimal after until earlier today he started having sharp epigastric pain radiating down to his lower quadrants. Associated nausea and bilious vomiting. 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 Denies headache, fatigue, sob, chest pain, diarrhea/constipation, melena, hematuria, dysuria. Of note he was diagnosed with Crohn's 5 years ago and was previously on mesalamine. He stopped taking mesalamine a few years ago due to insurance and since has been able to control symptoms with avoidance of triggers. Has previously always been able to pass his kidney stones with supportive care. He is on IV Zosyn at present. Allergies Allergy/AdvReac Type Severity Reaction Status Date / Time No Known Allergies Allergy Verified 10/21/22 19:42 Home Medications Medication Instructions Recorded Confirmed Type oxycodone 5 mg tablet 5 mg PO Q6H PRN pain #10 tabs 10/19/22 10/21/22 Rx tamsulosin 0.4 mg capsule (Flomax) 0.4 mg PO DAILY #10 caps 10/19/22 10/21/22 Rx Patient History Medical History Crohn disease Surgical History No pertinent past surgical history Social History Smoking Status: Never smoker Second Hand Exposure: No; Do You Dip or Chew Tobacco: No; Tobacco Cessation Education Requested by Patient: No Hx Alcohol Use: Yes Alcohol type: beer Hx Substance Use: No Preferred Language: Hungarian Communication Ability: Effective Floor Layer Apprentice Required: No Beliefs That Will Affect Care: None Current Living Situation: Other Current Living Situation Comment: Roomates on the weekend Other Information That Helps Us Care for You: No Feels Safe at Home: Yes Safety Concerns: Feels Safe At This Time Assistive Devices: None Review of Systems Constitutional: no fever and no chills Respiratory: no cough and no dyspnea Cardiovascular: no chest pain Gastrointestinal: + abdominal pain; no diarrhea/loose stools and no blood in stools Psychiatric: no problem reported Hematologic / Lymphatic: no unexplained weight loss Physical Exam Constitutional: well developed Respiratory: normal respiratory effort Cardiovascular: Rate/Rhythm: regular rate Gastrointestinal (Abdomen): Inspection/Auscultation: + hypoactive bowel sounds Percussion/Palpation: + abdomen tender Musculoskeletal: Head/Neck/Chest: normocephalic Psychiatric: Orientation: alert and oriented x 3 Results & Data Vital Signs (Past 12 Hours) Vital Signs Temp Pulse Pulse Resp BP BP Pulse Ox 10/22/22 07:59 36.5 C 57 L 17 126/71 97 10/22/22 01:00 10/22/22 00:57 37 C 78 18 115/70 98 10/22/22 00:07 66 20 133/71 96 10/21/22 23:47 76 O2 Del Method 10/22/22 07:59 Room Air 10/22/22 01:00 Room Air 10/22/22 00:57 Room Air 10/22/22 00:07 Room Air 10/21/22 23:47 PG Care Time/CCT Total # of Minutes Spent Total Time Spent with Patient: Total time spent is greater than 50% in coordination of care (as documented) at patient's floor/unit and/or counseling patient: Coding Level of Care Code 89431 IN/OBS CONSULT LVL 4,60M Diagnoses Crohn's disease K50.90 SBO (small bowel obstruction) K56.609
--- NOTE | 2022-10-22 11:55 | Electrocardiogram Report ---
Test Reason : Blood Pressure : / mmHG Vent. Rate : 108 BPM Atrial Rate : 108 BPM P-R Int : 152 ms QRS Dur : 074 ms QT Int : 292 ms P-R-T Axes : 051 021 042 degrees QTc Int : 391 ms Sinus tachycardia Otherwise normal ECG No previous ECGs available Confirmed by Rell King ([id number]) on 10/22/2022 11:55:28 AM Referred By: REFERRED SELF Confirmed By:Josse King
--- NOTE | 2022-10-22 12:26 | Surgery Consultation ---
Date of Consultation October 22, 2022 Assessment & Plan (1) Crohn's disease: (2) SBO (small bowel obstruction): Plan 27 year-old male with history of Crohn's disease not currently on any medications initially presented to ED on 10/19/22 with left lower abdominal pain found to have proximal left ureteral stone and prominent appendix and some edema of terminal ileum. He was discharged home and presented back to ER with increasing abdominal pain with associated nausea and vomiting. Repeat CT scan showing prominent appendix but edematous and thick walled terminal ileum with possible developing obstruction. Leukocytosis of 11.06. Afebrile. Plan: Unlikely acute appendicitis given history of Crohn's and findings of edema and wall thickening of terminal ileum. Likely Crohn's flare with partial obstruction. Continue conservative management : Npo for bowel rest, iv fluids, antiemetics and pain management as needed. Await GI evaluation but would benefit from IV steroids Will need GI referral to establish care in area Continue medical management encouraged ambulation Dr. oMe has seen and examined pt, agrees with above. Supervising Physician Co-Signing Physician Notes I have seen and examined the patient agree with the above assessment and plan. CT scan demonstrates Crohn's terminal ileitis. There is no abscess, perforation, obstruction. There are no surgical indications at this time. P lease refer to GI recommendations for treating the Crohn's flare. We will follow along peripherally. History of Present Illness Reason for Consultation: SBO, Crohn's flare Requesting Physician: Osvaldo Novoa MD Attending Physician: Jessica Gonzalez, History of Present Illness Eleno is a 27 year-old male with history of Crohn's disease and kidney stones who initially presented to ED a few days ago due to left lower abdominal flank pain and was found to have a proximal left uretal stone on CT scan of abdomen and pelvis without contrast which also showed prominent appendix at that time measuring 13 mm and some edema of terminal ileum however he was not having any symptoms of acute appendicitis. He was discharged home. States he then started developing epigastric pain with radiation to his lower abdomen with associated nausea and vomiting yesterday. Presented back to ED in which he had repeat CT scan showing prominent appendix but less dilated at 9 mm as well as wall thickening and edema of terminal ileum with possible developing SBO. Eleno states he was diagnosed with Crohn's disease in [facility] and was on Mesalamine but not currently on any medications. Has not established with GI doctor since moving to [facility]. Currently states that he is feeling a little better. Pain is not as severe but still present in mid abdomen. Passing some gas but no bowel movement. No further vomiting since admission. Allergies Allergy/AdvReac Type Severity Reaction Status Date / Time No Known Allergies Allergy Verified 10/21/22 19:42 Home Medications Medication Instructions Recorded Confirmed Type oxycodone 5 mg tablet 5 mg PO Q6H PRN pain #10 tabs 10/19/22 10/21/22 Rx tamsulosin 0.4 mg capsule (Flomax) 0.4 mg PO DAILY #10 caps 10/19/22 10/21/22 Rx Patient History Medical History Crohn disease Surgical History No pertinent past surgical history Social History Smoking Status: Never smoker Second Hand Exposure: No; Do You Dip or Chew Tobacco: No; Tobacco Cessation Education Requested by Patient: No Hx Alcohol Use: Yes Alcohol type: beer Hx Substance Use: No Preferred Language: Lao Communication Ability: Effective Snowboard Designer Required: No Beliefs That Will Affect Care: None Current Living Situation: Other Current Living Situation Comment: Roomates on the weekend Other Information That Helps Us Care for You: No Feels Safe at Home: Yes Safety Concerns: Feels Safe At This Time Assistive Devices: None Review of Systems Review of Systems: All systems reviewed & are unremarkable except as noted in HPI & below Physical Exam Constitutional: WD/WN, vitals as above cooperative and comfortable; no a cute distress and not ill appearing Neck: normal visual inspection and trachea midline Respiratory: normal respiratory effort; no respiratory distress Gastrointestinal (Abdomen): Inspection/Auscultation: abdomen normal to inspection and + hypoactive bowel sounds; abdomen not distended, + abnormal bowel sounds and no abdominal surgical scar Percussion/Palpation: + abdomen tender (mid abdomen) and abdomen soft; no guarding, abdomen not rigid and abdomen not firm Skin: no rashes, warm and dry Psychiatric: A+Ox3, euthymic affect Results & Data Vital Signs (Past 12 Hours) Vital Signs Temp Pulse Resp BP Pulse Ox O2 Del Method 10/22/22 07:59 36.5 C 57 L 17 126/71 97 Room Air 10/22/22 01:00 Room Air 10/22/22 00:57 37 C 78 18 115/70 98 Room Air Laboratory Results 10/22/22 10/22/22 10/22/22 Range/Units 06:43 06:43 06:43 WBC 8.27 (4.8-10.8) K/ul RBC 4.67 L (4.70-6.10) M/uL Hgb 13.7 L (14.0-18.0) g/dl POC Hgb (14.0-18.0) g/dl Hct 40.2 L (42.0-52.0) % POC Hct (42-52) % MCV 86.1 (80.0-100.0) fL MCH 29.3 (25.0-34.0) pg MCHC 34.1 (32.0-36.0) g/dL RDW Std Deviation 38.2 (36.4-46.3) fL RDW Coeff of Kat 12.3 (11.5-14.5) % Plt Count 165 D (130-400) K/uL MPV 11.6 (9.4-12.4) fL Immature Gran % (Auto) 0.2 % Neut % (Auto) 91.2 % Lymph % (Auto) 7.4 % Lipscomb % (Auto) 1.0 % Eos % (Auto) 0.1 % Baso % (Auto) 0.1 % Neut # (Auto) 7.54 H (1.40-6.50) K/uL Lymph # (Auto) 0.61 L (1.2-3.4) K/uL Lipscomb # (Auto) 0.08 L (0.11-0.59) K/uL Eos # (Auto) 0.01 (0-0.50) K/uL Baso # (Auto) 0.01 (0-0.2) K/uL Immature Gran # (Auto) 0.02 (0.01-0.20) K/uL Platelet Estimate (Normal) PT (9.0-12.0) Seconds INR (0.9-1.1) APTT (21.0-31.0) Seconds PTT Ratio POC Sodium (135-144) mmol/L Sodium 139 (136-145) mmol/L POC Potassium (3.3-5.0) mmol/L Potassium 4.2 (3.5-5.1) mmol/L POC Chloride (101-112) mmol/L Chloride 107 (98-107) mmol/L Carbon Dioxide 24 (21-32) mmol/L POC Total CO2 (24-31) mmol/L Anion Gap 8 (3-11) POC Anion Gap (16-25) mmol/L POC BUN (7-18) mg/dl BUN 11 (6-23) mg/dl Creatinine 0.79 (0.6-1.4) mg/dl POC Creatinine (0.6-1.3) mg/dl Est Cr Clr Drug Dosing 156.9 ml/min Est GFR ( Amer) 142.6 ml/min Est GFR (Non-Af Amer) 123.1 ml/min BUN/Creatinine Ratio 13.9 (10-20) Glucose 124 H (70-99(Fasting)) mg/dl POC Glucose (other) (70-99) mg/dl Calcium 9.0 (8.6-10.3) mg/dl POC Ioniz Calcium Zainab (1.12-1.32) mmol/l Magnesium 1.9 (1.7-2.4) mg/dl Total Bilirubin (0.2-1.0) mg/dl AST (13-39) U/L ALT (7-52) U/L Alkaline Phosphatase (34-104) U/L C-Reactive Protein Pending Total Protein (6.0-8.3) gm/dl Albumin (3.4-5.0) gm/dl Globulin (2.5-4.0) gm/dl Albumin/Globulin Ratio (0.9-2) Lipase (11-82) U/L Urine Color Urine Appearance (Clear) Urine pH (4.5-7.5) Ur Specific [place] (1.000-1.030) Urine Protein (Negative) Urine Glucose (UA) (Negative) Urine Ketones (Negative) Urine Blood (Negative) Urine Nitrite (Negative) Urine Bilirubin (Negative) Urine Urobilinogen (Negative) Ur Leukocyte Esterase (Negative) 10/21/22 10/21/22 10/21/22 Range/Units 21:15 18:46 18:39 WBC (4.8-10.8) K/ul RBC (4.70-6.10) M/uL Hgb (14.0-18.0) g/dl POC Hgb 14.6 (14.0-18.0) g/dl Hct (42.0-52.0) % POC Hct 43 (42-52) % MCV (80.0-100.0) fL MCH (25.0-34.0) pg MCHC (32.0-36.0) g/dL RDW Std Deviation (36.4-46.3) fL RDW Coeff of Kat (11.5-14.5) % Plt Count (130-400) K/uL MPV (9.4-12.4) fL Immature Gran % (Auto) % Neut % (Auto) % Lymph % (Auto) % Lipscomb % (Auto) % Eos % (Auto) % Baso % (Auto) % Neut # (Auto) (1.40-6.50) K/uL Lymph # (Auto) (1.2-3.4) K/uL Lipscomb # (Auto) (0.11-0.59) K/uL Eos # (Auto) (0-0.50) K/uL Baso # (Auto) (0-0.2) K/uL Immature Gran # (Auto) (0.01-0.20) K/uL Platelet Estimate (Normal) PT 10.5 (9.0-12.0) Seconds INR 1.0 (0.9-1.1) APTT 30.3 (21.0-31.0) Seconds PTT Ratio 1.1 POC Sodium 140 (135-144) mmol/L Sodium (136-145) mmol/L POC Potassium 3.6 (3.3-5.0) mmol/L Potassium (3.5-5.1) mmol/L POC Chloride 104 (101-112) mmol/L Chloride (98-107) mmol/L Carbon Dioxide (21-32) mmol/L POC Total CO2 22 L (24-31) mmol/L Anion Gap (3-11) POC Anion Gap 19.0 (16-25) mmol/L POC BUN 8 (7-18) mg/dl BUN (6-23) mg/dl Creatinine (0.6-1.4) mg/dl POC Creatinine 0.8 (0.6-1.3) mg/dl Est Cr Clr Drug Dosing ml/min Est GFR ( Amer) ml/min Est GFR (Non-Af Amer) ml/min BUN/Creatinine Ratio (10-20) Glucose (70-99(Fasting)) mg/dl POC Glucose (other) 94 (70-99) mg/dl Calcium (8.6-10.3) mg/dl POC Ioniz Calcium Zainab 1.24 (1.12-1.32) mmol/l Magnesium (1.7-2.4) mg/dl Total Bilirubin (0.2-1.0) mg/dl AST (13-39) U/L ALT (7-52) U/L Alkaline Phosphatase (34-104) U/L C-Reactive Protein Total Protein (6.0-8.3) gm/dl Albumin (3.4-5.0) gm/dl Globulin (2.5-4.0) gm/dl Albumin/Globulin Ratio (0.9-2) Lipase (11-82) U/L Urine Color Yellow Urine Appearance Clear (Clear) Urine pH 5.5 (4.5-7.5) Ur Specific Win[place] > 1.045 H (1.000-1.030) Urine Protein Negative (Negative) Urine Glucose (UA) Negative (Negative) Urine Ketones 3+ H (Negative) Urine Blood Negative (Negative) Urine Nitrite Negative (Negative) Urine Bilirubin Negative (Negative) Urine Urobilinogen Negative (Negative) Ur Leukocyte Esterase Negative (Negative) 10/21/22 10/21/22 Range/Units 18:39 18:39 WBC 11.06 H (4.8-10.8) K/ul RBC 4.87 (4.70-6.10) M/uL Hgb 14.3 (14.0-18.0) g/dl POC Hgb (14.0-18.0) g/dl Hct 41.4 L (42.0-52.0) % POC Hct (42-52) % MCV 85.0 (80.0-100.0) fL MCH 29.4 (25.0-34.0) pg MCHC 34.5 (32.0-36.0) g/dL RDW Std Deviation 37.8 (36.4-46.3) fL RDW Coeff of Kat 12.3 (11.5-14.5) % Plt Count 70 L (130-400) K/uL MPV 11.5 (9.4-12.4) fL Immature Gran % (Auto) 0.3 % Neut % (Auto) 86.2 % Lymph % (Auto) 7.1 % Lipscomb % (Auto) 6.0 % Eos % (Auto) 0.2 % Baso % (Auto) 0.2 % Neut # (Auto) 9.55 H (1.40-6.50) K/uL Lymph # (Auto) 0.78 L (1.2-3.4) K/uL Lipscomb # (Auto) 0.66 H (0.11-0.59) K/uL Eos # (Auto) 0.02 (0-0.50) K/uL Baso # (Auto) 0.02 (0-0.2) K/uL Immature Gran # (Auto) 0.03 (0.01-0.20) K/uL Platelet Estimate Decreased L (Normal) PT (9.0-12.0) Seconds INR (0.9-1.1) APTT (21.0-31.0) Seconds PTT Ratio POC Sodium (135-144) mmol/L Sodium 138 (136-145) mmol/L POC Potassium (3.3-5.0) mmol/L Potassium 3.5 (3.5-5.1) mmol/L POC Chloride (101-112) mmol/L Chloride 105 (98-107) mmol/L Carbon Dioxide 23 (21-32) mmol/L POC Total CO2 (24-31) mmol/L Anion Gap 10 (3-11) POC Anion Gap (16-25) mmol/L POC BUN (7-18) mg/dl BUN 9 (6-23) mg/dl Creatinine 0.84 (0.6-1.4) mg/dl POC Creatinine (0.6-1.3) mg/dl Est Cr Clr Drug Dosing 136.4 ml/min Est GFR ( Amer) 139.1 ml/min Est GFR (Non-Af Amer) 120.0 ml/min BUN/Creatinine Ratio 10.7 (10-20) Glucose 90 (70-99(Fasting)) mg/dl POC Glucose (other) (70-99) mg/dl Calcium 9.0 (8.6-10.3) mg/dl POC Ioniz Calcium Zainab (1.12-1.32) mmol/l Magnesium (1.7-2.4) mg/dl Total Bilirubin 0.5 (0.2-1.0) mg/dl AST 13 (13-39) U/L ALT 14 (7-52) U/L Alkaline Phosphatase 66 (34-104) U/L C-Reactive Protein Total Protein 7.3 (6.0-8.3) gm/dl Albumin 4.0 (3.4-5.0) gm/dl Globulin 3.3 (2.5-4.0) gm/dl Albumin/Globulin Ratio 1.2 (0.9-2) Lipase 16 (11-82) U/L Urine Color Urine Appearance (Clear) Urine pH (4.5-7.5) Ur Specific Winifrede (1.000-1.030) Urine Protein (Negative) Urine Glucose (UA) (Negative) Urine Ketones (Negative) Urine Blood (Negative) Urine Nitrite (Negative) Urine Bilirubin (Negative) Urine Urobilinogen (Negative) Ur Leukocyte Esterase (Negative) Diagnostic Findings Exam(s): CT ABDOMEN + PELVIS With Contrast IV 10/21/2022 EXAM: CT Abdomen and Pelvis With Intravenous Contrast CLINICAL HISTORY: Reason for exam: abd pain. TECHNIQUE: Axial computed tomography images of the abdomen and pelvis with intravenous contrast. CTDI is 23.55 mGy and DLP is 1274.27 mGy-cm. Automated exposure control was utilized for the study. A dose lowering technique was utilized adhering to the principles of ALARA. CONTRAST: Patient received 93 ml optiray 350 of IV contrast COMPARISON: CT abdomen/pelvis on 10/19/2022 FINDINGS: Lung bases: Mild dependent atelectasis bilaterally. ABDOMEN: Liver: Mild hepatomegaly. No mass. Gallbladder and bile ducts: Unremarkable. No calcified stones. No ductal dilation. Pancreas: Unremarkable. No mass. No ductal dilation. Spleen: Mild splenomegaly. Adrenals: Unremarkable. No mass. Kidneys and ureters: Patchy hypoattenuation in the right kidney raises concern for pyelonephritis. Punctate nonobstructing right renal stone. No hydronephrosis or ureteral stone. Stomach and bowel: Wall thickening of the terminal and distal ileum, concerning for enteritis. The terminal ileum is decompressed, and the extreme small bowel ileal loops are mildly distended. Findings raise concern for component of obstruction. Evaluation of the stomach is limited by underdistention. PELVIS: Appendix: Mild prominence of the appendix is similar compared to prior exam which may represent chronic changes versus acute appendicitis. Appendix measures approximately 9 mm in diameter. Bladder: Unremarkable. No mass. Reproductive: Unremarkable as visualized. ABDOMEN and PELVIS: Intraperitoneal space: Small amount of fluid in the lower abdomen and pelvis. No free air. Bones/joints: No acute fracture. No dislocation. Soft tissues: Bilateral gynecomastia. Vasculature: Unremarkable. No abdominal aortic aneurysm. Lymph nodes: Prominent mesenteric lymph nodes are nonspecific but may be reactive. IMPRESSION: 1. Mild prominence of the appendix is similar compared to prior exam which may represent chronic changes versus acute appendicitis. Appendix measures approximately 9 mm in diameter. 2. Wall thickening of the terminal and distal ileum, concerning for enteritis. The terminal ileum is decompressed, and the extreme small bowel ileal loops are mildly distended. Findings raise concern for component of obstruction. 3. Patchy hypoattenuation in the right kidney raises concern for pyelonephritis. 4. Punctate nonobstructing right renal stone. No hydronephrosis or ureteral stone. 5. Small amount of fluid in the lower abdomen and pelvis. Exam(s): CT ABDOMEN + PELVIS Without Contrast 10/19/2022 EXAM: CT Abdomen and Pelvis Without Intravenous Contrast CLINICAL HISTORY: Reason for exam: Left flank pain. History of stones. TECHNIQUE: Axial computed tomography images of the abdomen and pelvis without intravenous contrast. CTDI is 20.61 mGy and DLP is 1067.39 mGy-cm. Automated exposure control was utilized for the study. A dose lowering technique was utilized adhering to the principles of ALARA. COMPARISON: September 10, 2017 FINDINGS: Lung bases: Unremarkable. No mass. No consolidation. ABDOMEN: Liver: Unremarkable. Gallbladder and bile ducts: Unremarkable. No calcified stones. No ductal dilation. Pancreas: Unremarkable. No ductal dilation. Spleen: Unremarkable. No splenomegaly. Adrenals: Unremarkable. No mass. Kidneys and ureters: Mild left hydronephrosis and proximal hydroureter due to a 5 x 3 mm calculus in the proximal left ureter located approximately 19 cm in the ureterovesicular junction. Nonobstructive 2 mm calyceal calculus in the mid right kidney. No hydronephrosis on the right. Stomach and bowel: See below. PELVIS: Appendix: The appendix is more prominent than previous measuring 13 mm at its midpoint. Correlate with clinical scenario and physical exam findings to rule out mild early acute appendicitis or chronic appendicitis. No abscess or significant free fluid is seen. Bladder: The urinary bladder is empty. No stones. Reproductive: Unremarkable as visualized. ABDOMEN and PELVIS: Intraperitoneal space: See above. Bones/joints: No acute fracture. No dislocation. Soft tissues: Slight edema involving the wall of the terminal ileum in the right lower quadrant. This is nonspecific. There is a small amount of fat deposition along the wall of the cecum suggesting mild chronic inflammation, similar to previous. Vasculature: Unremarkable. No abdominal aortic aneurysm. Lymph nodes: Unremarkable. No enlarged lymph nodes. IMPRESSION: 1. The appendix is more prominent than previous measuring 13 mm at its midpoint. Correlate with clinical scenario and physical exam findings to rule out mild early acute appendicitis or chronic appendicitis. No abscess or significant free fluid is seen. 2. Mild left hydronephrosis and proximal hydroureter due to a 5 x 3 mm calculus in the proximal left ureter located approximately 19 cm in the ureterovesicular junction. 3. Slight edema involving the wall of the terminal ileum in the right lower quadrant. This is nonspecific. There is a small amount of fat deposition along the wall of the cecum suggesting mild chronic inflammation, similar to previous.
[2022-10-22] MEDS: methylPREDNISolone 30 MG in SYRINGE 0 ML IV SCH (20:21)
[2022-10-22] MEDS ORDERED: methylPREDNISolone 40 MG in SYRINGE 0 ML IV SCH (21:00)
[2022-10-23] MEDS: SODIUM CHLORIDE 0.9% 1000ML 1,000 ML IV SCH (06:30)
[2022-10-23] MEDS: methylPREDNISolone 30 MG in SYRINGE 0 ML IV SCH (08:19)
[2022-10-23] MEDS: TAMSULOSIN HCL 0.4 MG CAP PO SCH (08:19)
[2022-10-23 09:12] LABS: Calcium 9.2 mg/dl (8.6-10.3); Creatinine Clr Calc Pharmacy 153.1 ml/min; Est GFR (African American) 141.2 ml/min; Est GFR (Non-African American) 121.8 ml/min; Potassium 4.5 mmol/L (3.5-5.1)
[2022-10-23 09:45] LABS: Hemoglobin 14.7 g/dl (14.0-18.0); Mean Corpuscular Hemoglobin 29.3 pg (25.0-34.0); Mean Corpuscular Volume 83.7 fL (80.0-100.0); Mean Platelet Volume 12.3 fL (9.4-12.4); Platelet Count 177 K/uL (130-400); RDW Coefficient of Variation 12.5 % (11.5-14.5); RDW Standard Deviation 37.8 fL (36.4-46.3); Red Blood Count 5.02 M/uL (4.70-6.10); White Blood Count 9.92 K/ul (4.8-10.8)
--- NOTE | 2022-10-23 09:53 | Gastroenterology Progress Note ---
Date of Service October 23, 2022 Assessment & Plan (1) Crohn's disease: (2) SBO (small bowel obstruction): Plan -Continue to advance diet as tolerated. -Continue IV Solumedrol 40 mg BID while hospitalized. -Appreciate surgical consult. -Plan for outpatient colonoscopy to be arranged through our office. -When discharged, advise a Prednisone taper beginning at 40 mg daily x 7 days, then decreasing by 5 mg weekly for a total of 8 weeks. Admission and Anticipated Discharge Date Admission Date: October 21, 2022 Subjective Patient is a 27 yo male with a history of Crohn's Disease. Yesterday he began Solumedrol 40 mg BID. He notes improvement in his abdominal pain today. He was able to tolerate a light breakfast & notes he is passing flatus. No bowel mo vement yet. No new symptoms reported. Review of Systems Gastrointestinal: + abdominal pain (improving) flatus Physical Exam Constitutional: well developed Respiratory: normal respiratory effort Gastrointestinal (Abdomen): Inspection/Auscultation: abdomen not distended Psychiatric: Orientation: alert and oriented x 3 Results & Data Results & Data Vital Signs (Past 12 Hours) Vital Signs Temp Pulse Resp BP Pulse Ox O2 Del Method 10/23/22 06:37 36.5 C 63 16 100/63 97 Room Air 10/22/22 22:15 36.9 C 60 16 101/59 L 94 Room Air PG Care Time/CCT Total # of Minutes Spent Total Time Spent with Patient: Total time spent is greater than 50% in coordination of care (as documented) at patient's floor/unit and/or counseling patient: Coding Level of Care Code 82397 SUB INP/OBS CARE 3/50MIN Diagnoses Crohn's disease K50.90 SBO (small bowel obstruction) K56.609
[2022-10-23 09:58] LABS: Basophils # (auto) 0.01 K/uL (0-0.2); Basophils % (auto) 0.1 %; Immature Granulocytes # (auto) 0.06 K/uL (0.01-0.20); Immature Granulocytes % (auto) 0.6 %; Lymphocytes # (auto) 1.07 K/uL (1.2-3.4); Lymphocytes % (auto) 10.8 %; Monocytes # (auto) 0.51 K/uL (0.11-0.59); Monocytes % (auto) 5.1 %; Neutrophils # (auto) 8.27 K/uL (1.40-6.50); Neutrophils % (auto) 83.4 %; Platelet Estimate Normal (Normal)
--- NOTE | 2022-10-23 12:11 | Discharge Summary ---
Discharge Summary Date of Service October 23, 2022 Admission HPI Per Admitting Provider 27 yo male with PMHx of Crohn's disease and kidney stones presents with abdominal pain. 3 days ago patient began having LLQ pain. He presumed it was a kidney stone given his history so he tried to hydrate but ended up vomiting prompting an ER visit. He was found to have a 5mm stone in his L proximal ureter with mild hydronephrosis and was discharged on flomax and oxy. His pain was minimal after until earlier today he started having sharp epigastric pain radiating down to his lower quadrants. Associated nausea and bilious vomiting. 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 Denies headache, fatigue, sob, chest pain, diarrhea/constipation, melena, hematuria, dysuria. Of note he was diagnosed with Crohn's 5 years ago and was previously on mesalamine. He stopped taking mesalamine a few years ago due to insurance and since has been able to control symptoms with avoidance of triggers. Has previously always been able to pass his kidney stones with supportive care. Admission Exam Per Admitting Provider Constitutional: in no acute distress, pleasant and normal affect, intact memory. AOx3. Vitals as above. HEENT: No scleral injection or discharge.Moist mucous membranes. Neck: Supple without lymphadenopathy or thyromegaly. Trachea midline. Lungs: Clear to auscultation bilaterally with good effort. No wheezes/rales/rhonchi. Cardiac: Regular rate and rhythm. No murmurs. No extremity edema. 2+ distal peripheral pulses. Abdomen: Bowel sounds present. Soft and nondistended.Tender over epigastric and RLQ. Neg psoas sign. Neg McBurney. Neg Rovsing. No guarding or rebound tenderness. No hepatosplenomegaly. No CVA tenderness however with some low-mid L back discomfort upon palpation. MSK: No cyanosis or clubbing. Extremities motor strength 5/5. Skin: No abnormal rashes, warm, dry. Neurologic: no focal deficits Principal Dx & Hospital Course #1 = Principal Diagnosis (1) Crohn's disease: 27 yo male with PMHx of Crohn's disease and kidney stones admitted for Crohn's flare. -1 week ago with nephrolithiasis (left flank pain), presented this admission with different pain -CTAP this admission with mild prominence of the appendix measuring 9 mm, low suspicion of appendicitis per Surgery. Findings of enteritis and possible developing SBO on CTAP. -L ureter stone no longer apparent on repeat CT. CT with imaging findings possibly suggestive of R pyelo however UA negative and without CVA tenderness, fevers, chills. He does have an outpatient appt scheduled with them later this week, will keep this. -GI consulted for Crohn's flare, to follow up outpatient. -IV methylpred transitioned to oral prednisone taper (starting at 40mg daily, decrease by 5mg every 7 days until complete). -Tolerated low fiber without issue, to continue on discharge. (2) Ureterolithiasis: Recent Hx of, no evidence of obstructing stone on CT this admission and stone pain has resolved. Urology outpatient. (3) Thrombocytopenia: Plts as low as 70 here, acute, however back up to 170 without intervention other than Crohn's flare treatment. Follow up with PCP. Plan Discharge home with PCP and GI follow up. Needed new PCP, information provided. Discharge Exam Constitutional WD/WN, vitals as above Gastrointestinal (Abdomen) normal bowel sounds, soft, nontender, no hepatosplenomegaly Psychiatric A+Ox3, euthymic affect Updated Medication List Medication Instructions Recorded Confirmed Type oxycodone 5 mg tablet 5 mg PO Q6H PRN pain #10 tabs 10/19/22 10/21/22 Rx tamsulosin 0.4 mg capsule (Flomax) 0.4 mg PO DAILY #10 caps 10/19/22 10/21/22 Rx prednisone 5 mg tablet See Taper PO DAILY #252 tabs 10/23/22 Rx Hospital Stay Data Consultations 10/21/22 22:41 ED Decision to Admit Stat 10/21/22 22:47 Consult General Surgery Routine 10/21/22 23:46 Consult Gastroenterology Routine Diagnostic Imagining Performed 10/21/22 18:35 CT abd pelvis IV con only Stat Discharge Instructions Given to Patient (Per Discharging Provider) You are admitted to the hospital for abdominal pain and noted to have a Crohn's flare. You were started on IV steroids, and also given bowel rest. With these interventions, your symptoms improved, and we were able to escalate your diet up to a low fiber diet without issues. You were also seen by the surgical service due to concern for a bowel obstruction, which fortunately you did not have, nor did you have evidence of an appendicitis per the surgical team. You were seen by the gastroenterology service, who will follow-up with you outside the [facility]. I have provided their phone number for your use to schedule that appointment in the near future, you will also need a colonoscopy after your steroids are done. STEROID TAPER INSTRUCTIONS: 5 mg tablets. 40 mg daily (8 tablets) for 7 Days; 35 mg daily (7 tablets) for 7 Days; 30 mg daily (6 tablets) for 7 Days; 25 mg daily (5 tablets) for 7 Days; 20 mg daily (4 tablets) for 7 Days; 15 mg (3 tablets) daily for 7 Days; 10 mg daily (2 tablets) for 7 Days; 5 mg daily (1 tablet) for 7 Days Regarding pain, try taking Tylenol and ibuprofen for pain before reaching for the oxycodone medication, in order to decrease risk of bowel obstruction and constipation. If you have any concerns with regard to your abdominal pain, have worsening of such, worsening of bloody stools, or other concerns, you can call the gastroenterology office for next steps. If you are urgently concerned for your medical safety, please seek urgent attention at the emergency room. Please keep your scheduled appointment with the Urology office for your recent kidney stone. I have provided information for Dr. Roberto Griggs, one of the family doctors in the area. You should call his office to try to schedule an appointment with either him or one of his colleagues to get established with a family doctor. Total Time Total Time Spent Total Time Spent (In Minutes): 35 min Coding Level of Care Code 48962 INP/OBS DISCH >30 MIN Diagnoses Crohn's disease K50.90 Ureterolithiasis N20.1 Thrombocytopenia D69.6
--- NOTE | 2022-10-23 13:43 | Surgery Progress Note ---
Date of Service October 23, 2022 Assessment & Plan (1) Crohn's disease: (2) SBO (small bowel obstruction): Plan Resolving SBO secondary to Crohn's flare No surgical intervention can advance diet as tolerated to low fiber diet Steroid management per GI, will need outpatient follow-up with GI as he has no provider since moving to this area continue ambulation our services singing off, please call with questions/concerns Discussed with Dr. Moe who agrees with above. Admission and Anticipated Discharge Date Admission Date: October 21, 2022 Subjective feeling better today no n,v tolerated clear liquids no abdominal pain passed gas last evening Physical Exam Constitutional: WD/WN, vitals as above healthy appearing, cooperative and comfortable; no acute distress and not ill appearing Respiratory: normal respiratory effort; no respiratory distress Gastrointestinal (Abdomen): Inspection/Auscultation: abdomen normal to inspection; abdomen not distended Percussion/Palpation: abdomen soft; abdomen nontender, no guarding and abdomen not rigid Psychiatric: A+Ox3, euthymic affect Results & Data Vital Signs (Past 12 Hours) Vital Signs Temp Pulse Resp BP Pulse Ox O2 Del Method 10/23/22 06:37 36.5 C 63 16 100/63 97 Room Air Laboratory Results 10/23/22 10/23/22 10/23/22 Range/Units 07:55 07:55 07:55 WBC 9.92 (4.8-10.8) K/ul RBC 5.02 (4.70-6.10) M/uL Hgb 14.7 (14.0-18.0) g/dl Hct 42.0 (42.0-52.0) % MCV 83.7 (80.0-100.0) fL MCH 29.3 (25.0-34.0) pg MCHC 35.0 (32.0-36.0) g/dL RDW Std Deviation 37.8 (36.4-46.3) fL RDW Coeff of Kat 12.5 (11.5-14.5) % Plt Count 177 (130-400) K/uL MPV 12.3 (9.4-12.4) fL Immature Gran % (Auto) 0.6 % Neut % (Auto) 83.4 % Lymph % (Auto) 10.8 % [place] % (Auto) 5.1 % Eos % (Auto) 0.0 % Baso % (Auto) 0.1 % Neut # (Auto) 8.27 H (1.40-6.50) K/uL Lymph # (Auto) 1.07 L (1.2-3.4) K/uL [place] # (Auto) 0.51 (0.11-0.59) K/uL Eos # (Auto) 0.00 (0-0.50) K/uL Baso # (Auto) 0.01 (0-0.2) K/uL Immature Gran # (Auto) 0.06 (0.01-0.20) K/uL Platelet Estimate Normal (Normal) Sodium 140 (136-145) mmol/L Potassium 4.5 (3.5-5.1) mmol/L Chloride 106 (98-107) mmol/L Carbon Dioxide 28 (21-32) mmol/L Anion Gap 6 (3-11) BUN 13 (6-23) mg/dl Creatinine 0.81 (0.6-1.4) mg/dl Est Cr Clr Drug Dosing 153.1 ml/min Est GFR ( Amer) 141.2 ml/min Est GFR (Non-Af Amer) 121.8 ml/min BUN/Creatinine Ratio 16.0 (10-20) Glucose 113 H (70-99(Fasting)) mg/dl Calcium 9.2 (8.6-10.3) mg/dl C-Reactive Protein 3.50 H (0-0.5) mg/dl 10/22/22 Range/Units 06:43 WBC (4.8-10.8) K/ul RBC (4.70-6.10) M/uL Hgb (14.0-18.0) g/dl Hct (42.0-52.0) % MCV (80.0-100.0) fL MCH (25.0-34.0) pg MCHC (32.0-36.0) g/dL RDW Std Deviation (36.4-46.3) fL RDW Coeff of Kat (11.5-14.5) % Plt Count (130-400) K/uL MPV (9.4-12.4) fL Immature Gran % (Auto) % Neut % (Auto) % Lymph % (Auto) % [place] % (Auto) % Eos % (Auto) % Baso % (Auto) % Neut # (Auto) (1.40-6.50) K/uL Lymph # (Auto) (1.2-3.4) K/uL [place] # (Auto) (0.11-0.59) K/uL Eos # (Auto) (0-0.50) K/uL Baso # (Auto) (0-0.2) K/uL Immature Gran # (Auto) (0.01-0.20) K/uL Platelet Estimate (Normal) Sodium (136-145) mmol/L Potassium (3.5-5.1) mmol/L Chloride (98-107) mmol/L Carbon Dioxide (21-32) mmol/L Anion Gap (3-11) BUN (6-23) mg/dl Creatinine (0.6-1.4) mg/dl Est Cr Clr Drug Dosing ml/min Est GFR ( Amer) ml/min Est GFR (Non-Af Amer) ml/min BUN/Creatinine Ratio (10-20) Glucose (70-99(Fasting)) mg/dl Calcium (8.6-10.3) mg/dl C-Reactive Protein 8.58 H (0-0.5) mg/dl
== END 2022-10-23 15:03 | disposition home or self-care (01) ==
LOC: ED 18:21 → 3N 18:21 → SUATTDRO 23:45 → 3N 10-22 00:31